=== PATIENT | female | born 1985 | race Caucasian/White ===

== ENCOUNTER 2022-11-23 08:36 | Emergency (ER) | payer OTHER, SELFPAY ==
--- NOTE | 2022-11-23 08:46 | ED.URI ---
HPI - URI/Sore Throat General Chief Complaint: Upper Respiratory Infection Stated Complaint: ear ringing and pain; headache, nose Time Seen by Provider: 11/23/22 08:47 Source: patient, RN notes reviewed and old records reviewed Mode of arrival: ambulatory Limitations: no limitations History of Present Illness HPI Narrative: 37-year-old female presents to the [facility] with ear ringing, pain and headache. patient had sinus surgery July. July and August were on antibiotics for same complaints. Currently under treatment with neurologist for chronic migraines. Currently using Botox. States this is going on a month but over last couple of days as got worse. Related Data Home Medications Medication Instructions Recorded Confirmed desvenlafaxine succinate 25 mg 25 mg PO DAILY 11/23/22 11/23/22 tablet,extended release 24 hr ubrogepant 100 mg tablet (Ubrelvy) 100 mg PO PRN PRN Migraine Headache 11/23/22 11/23/22 Allergies Allergy/AdvReac Type Severity Reaction Status Date / Time No Known Allergies Allergy Verified 11/23/22 08:51 Review of Systems Review of Systems: All systems reviewed & are unremarkable except as noted in HPI and below Constitutional: Constitutional: Reports no additional constitutional complaints Eyes: Eyes: Reports no additional eye complaints ENT: Reports as per HPI and Reports otalgia Cardiovascular: Cardiovascular: Reports no additional cardiovascular complaints, Denies chest pain and Denies dyspnea Respiratory: Respiratory: Reports no additional respiratory complaints, Denies chest congestion, Denies cough and Denies dyspnea Gastrointestinal: Gastrointestinal: Reports no additional gastrointestinal complaints, Denies abdominal pain, Denies nausea and Denies vomiting Musculoskeletal: Musculoskeletal: Reports no additional musculoskeletal complaints Integumentary/Breasts: Skin/Breast: Reports system reviewed and no additional complaints, except as docu Neurologic: Reports system reviewed and no additional complaints, except as documented Psychiatric: Psychiatric: Reports no additional psychiatric complaints Allergic/Immunologic: Allergic/Immunologic: Reports no additional allergic/immunologic complaints PMFSH Past Medical History Medical History (Updated 11/23/22 @ 11:39 by Jodi Chun APRN) Migraines Surgical History Surgical History (Updated 11/23/22 @ 11:37 by Jodi Chun APRN) H/O sinus surgery Social History Social History (Updated 11/23/22 @ 11:37 by Jodi A. Topper, SILVERER) Gender identity (if verbalized by the patient): Female Comments At the time of my signature, I reviewed and agree with the nursing past medical, surgical, social, and family history. There is no relevant family history pertinent to the patient complaint. Exam Const: General: cooperative, healthy appearing, comfortable, no acute distress, well developed, alert and well nourished Nutritional Appearance: well nourished and obese Orientation/consciousness: patient oriented x3 Limitations: no limitations HENMT: Head: normal to inspection Ears: hearing grossly normal bilaterally, external ears normal, EAC's normal, mastoids normal, no periauricular adenopathy and TM abnormal bulging bilateral, erythematous on the right, with fluid behind the TM on the left and with loss of landmarks on the right Face/Nose/Sinus: Normal external nose present, Normal nares present, Normal nasal mucous membranes and turbinates present and normal facial exam Face and sinus: normal facial exam, sinuses nontender and face symmetric Mouth: Yes Normal oral and palatal mucosa present, Yes lip normal, Yes tongue normal and Yes moist mucous membranes Throat: posterior oropharynx normal, tonsils normal and uvula midline Eyes: General: appearance normal, both eyes and all related structures Alignment and Position: alignment normal Periorbital: periorbital findings normal Conjunctivae: conjunctivae normal
[2022-11-23 08:48] VITALS: BP 126/87; PULSE 87; RESP 20; TEMP 36.1; O2SAT 100
== END 2022-11-23 09:11 | disposition home or self-care (01) ==
PROVIDERS: Emergency Provider Nurse Practitioner; PCP Nurse Practitioner Family
DX: H66.91 Otitis media, unspecified, right ear (principal); H65.02 Acute serous otitis media, left ear
CPT/HCPCS: 99203; G0463

== ENCOUNTER 2022-12-29 18:28 | Emergency (ER) | payer OTHER, SELFPAY ==
--- NOTE | 2022-12-29 18:32 | ED.GENADULT ---
HPI - General Adult General Chief complaint: Upper Respiratory Infection Stated complaint: Rt Ear Irritation,Congestion Time Seen by Provider: 12/29/22 18:32 Source: patient Mode of arrival: ambulatory Limitations: no limitations History of Present Illness HPI narrative: 37-year-old female patient presents to the [facility] with complaints of cold symptoms for the past 3 weeks. Patient states she did recently just see her ENT because she has had nasal surgery in July. The ENT did scope her sinuses and said she might have a sinus infection but also could be related to allergies and prescribed her a steroid nasal spray. Patient states she started with a cough today and feels like her chest is heavy at times and hurts worse when taking a deep breath in. Denies fevers, body aches or chills. Related Data Home Medications Medication Instructions Recorded Confirmed desvenlafaxine succinate 25 mg 25 mg PO DAILY 11/23/22 12/29/22 tablet,extended release 24 hr ubrogepant 100 mg tablet (Ubrelvy) 100 mg PO PRN PRN Migraine Headache 11/23/22 12/29/22 Allergies Allergy/AdvReac Type Severity Reaction Status Date / Time No Known Allergies Allergy Verified 12/29/22 18:47 Review of Systems Review of Systems: CONSTITUTIONAL: Denies fever, chills, or sweats. EYES: Denies visual changes, redness, or discharge. ENT: Denies rhinorrhea, congestion, sore throat, or otalgia. CARDIOVASCULAR: Denies chest pain, palpitations, or edema. RESPIRATORY: Denies cough or dyspnea. GASTROINTESTINAL: Denies abdominal pain, nausea, vomiting, or diarrhea. GENITOURINARY: Denies dysuria or hematuria. SKIN: Denies rash or itching. MUSCULOSKELETAL: Denies back pain, joint pain, or myalgia. NEUROLOGIC: Denies headache, numbness, or weakness. PSYCHIATRIC: Denies anxiety or depression. [facility] Past Medical History Medical History Migraines Surgical History Surgical History H/O sinus surgery Social History Social History Gender identity (if verbalized by the patient): Female Comments At the time of my signature I agree with nursing past medical history, surgical, social, and family history. There is no relevant family history pertinent to the presenting complaint. Exam Narrative: GENERAL: Well-appearing, well-nourished, and in no acute distress. HEAD: Normocephalic, atraumatic. EYES: PERRLA and EOMI. ENT: Nares clear, no rhinorrhea or epistaxis. Mucous membranes moist. Posterior pharynx with no erythema, tonsillar edema, exudates or lesions present. Bilateral TMs are clear no erythema or foreign bodies the canal. NECK: Supple. No lymphadenopathy CHEST: Clear to auscultation. No respiratory distress. HEART: Regular rate and rhythm. No murmur heard. Normal peripheral pulses. ABDOMEN: Soft, nontender, nondistended, normal active bowel sounds. EXTREMITIES: Normal range of motion. No edema. SKIN: Warm, dry, no rash. NEURO: No focal deficits. Alert and oriented x3. Course Course Level of Care: Express Care Visit Vital Signs Vital signs: Vital Signs Temperature 36.4 C 12/29/22 19:12 Pulse Rate 87 12/29/22 19:12 Respiratory Rate 18 12/29/22 19:12 Blood Pressure 102/62 12/29/22 19:12 Pulse Oximetry 100 12/29/22 19:12 Oxygen Delivery Room Air 12/29/22 19:12 Temperature 36.4 C 12/29/22 19:12 Pulse Rate 87 12/29/22 19:12 Respiratory Rate 18 12/29/22 19:12 Blood Pressure 102/62 12/29/22 19:12 Pulse Oximetry 100 12/29/22 19:12 Oxygen Delivery Room Air 12/29/22 19:12 Vital signs reviewed Medical Decision Making MDM Narrative Medical decision making narrative: Discussed with patient that since she has had symptoms for a while and is now it has become a cough most likely is developing a bronchitis. Discussed with patient we will di
[2022-12-29 19:12] VITALS: BP 102/62; PULSE 87; RESP 18; TEMP 36.4; O2SAT 100
== END 2022-12-29 19:50 | disposition home or self-care (01) ==
PROVIDERS: Emergency Provider Nurse Practitioner Family; PCP Nurse Practitioner Family
DX: J06.9 Acute upper respiratory infection, unspecified (principal); R05.9 Cough, unspecified; J40 Bronchitis, not specified as acute or chronic; Z20.822 Contact with and (suspected) exposure to COVID-19; F41.9 Anxiety disorder, unspecified; F32.A Depression, unspecified
CPT/HCPCS: 87081; 87426; 87804; 87880; 99213; C9803; G0463

== ENCOUNTER 2023-06-27 10:42 | Emergency (ER) | payer OTHER, SELFPAY ==
--- NOTE | 2023-06-27 10:54 | ED.URI ---
HPI - URI/Sore Throat General Chief Complaint: Upper Respiratory Infection Stated Complaint: headache,cough,congestion Time Seen by Provider: 06/27/23 11:01 Source: patient and RN notes reviewed Mode of arrival: ambulatory Limitations: no limitations History of Present Illness HPI Narrative: 38-year-old female presented for complaint of sinus pressure and congestion with a cough for over 2 weeks. States pressures is worse under both eyes. She endorses a history of sinus infections, states she has had more frequent sinus infections since July of last year when she had a septoplasty. Unable to tolerate antihistamines, stating they make her drowsy and angry. States she was given a steroid nasal rinse but it causes ear pain and she has not continued with it. Currently taking cough med and using Flonase. Denies sob, wheezing, body aches, n/v/d/f/c. MD elicited complaint: cough Related Data Home Medications Medication Instructions Recorded Confirmed ubrogepant 100 mg tablet (Ubrelvy) 100 mg PO PRN PRN Migraine Headache 11/23/22 06/27/23 vortioxetine 5 mg tablet 5 mg DIRECTED 06/27/23 06/27/23 (Trintellix) Allergies Allergy/AdvReac Type Severity Reaction Status Date / Time No Known Allergies Allergy Verified 12/29/22 18:47 Review of Systems Review of Systems: CONSTITUTIONAL: Denies malaise, chills, sweats, fever EYES: Denies visual changes, redness, or discharge ENT: Reports rhinorrhea, congestion, sinus pain, denies otalgia, sore throat CARDIOVASCULAR: Denies chest pain, palpitations, edema RESPIRATORY: Reports cough, post nasal drainage. Denies dyspnea GASTROINTESTINAL: Denies abdominal pain, nausea, vomiting, diarrhea SKIN: Denies rash or itching MUSCULOSKELETAL: Denies myalgia NEUROLOGIC: Reports headache PMFSH Past Medical History Medical History (Updated 06/27/23 @ 11:13 by Shy Engel APRN) Migraines Surgical History Surgical History (Updated 06/27/23 @ 11:13 by Shy Engel APRN) H/O sinus surgery History of cholecystectomy Social History Social History Gender identity (if verbalized by the patient): Female Exam Narrative: GENERAL: well-appearing, nontoxic HEAD: Normocephalic EYES: PERRLA, conjunctivae clear ENT: Mucous membranes moist. Reports maxillary tenderness. TMs pearly chaney with light reflex bilaterally; no tragal tenderness. Oropharynx normal, no drooling, no hoarseness, no trismus, uvula midline. NECK: Supple. No lymphadenopathy CHEST: Clear to auscultation, breath sounds equal. No wheezing, rhonchi, rales, or stridor. No respiratory distress, speaks in full sentences. HEART: Regular rate and rhythm. No murmur heard. SKIN: Warm, dry, no rash. NEURO: Alert and oriented x3. PSYCH: Normal mood and affect Course Course Emergency Course: Patient is aware of diagnosis, understands and agrees to treatment plan. Anticipatory guidance given. Patient agrees to follow-up as directed and is aware of reasons to seek care at the emergency department. Portions of this record may have been created with voice recognition software Level of Care: Express Care Visit Vital Signs Vital signs: reviewed MDM - URI/Sore Throat MDM Narrative Medical decision making narrative: Discussed physical exam findings. Pt plans to f/u with new ENT for sleep studies and will address recurrent sinus infections. Advised supportive measures and signs/symptoms to go to the ER. Pt is appropriate for outpt treatment and f/u. Differential Diagnosis Differential diagnosis: Likely upper respiratory infection, otitis media, sinusitis and viral infection Discharge Plan Discharge Clinical Impression: Upper respiratory infection Patient Disposition: Home, Self-Care Condition: Stable Instructions: Antibiotic Form, Rhinosinusitis (ED) Additional Instructions: Recommend Flonase spray and saline spray over the counter Cough
[2023-06-27 10:56] VITALS: BP 144/92; PULSE 64; RESP 18; TEMP 36.1; O2SAT 100
== END 2023-06-27 11:13 | disposition home or self-care (01) ==
PROVIDERS: Emergency Provider Nurse Practitioner Family
DX: J06.9 Acute upper respiratory infection, unspecified (principal)
CPT/HCPCS: 99203; G0463

== ENCOUNTER 2023-07-28 09:18 | Emergency (ER) | payer OTHER, SELFPAY ==
--- NOTE | ~2023-07-28 | XR_ITS ---
EXAMINATION: XR toe 1st LT min 2V DATE: 07/28/2023 09:54 INDICATION: Left great toe injury and pain. TECHNIQUE: 4 views of left great toe were obtained. COMPARISON: None. FINDINGS: Bone alignment is normal. No fracture. There is mild osteoarthritis of first metatarsophala ngeal joint. IMPRESSION: 1. Mild osteoarthritis of first metatarsophalangeal joint. Reviewed, dictated and finalized at location A. ING MACHINE OFFBEARER
--- NOTE | ~2023-07-28 | XR_ITS ---
EXAMINATION: XR ankle RT min 3V DATE: 07/28/2023 09:53 INDICATION: Right ankle injury and pain. TECHNIQUE: 4 views of right ankle were obtained. COMPARISON: None. FINDINGS: Bone alignment is normal. No fracture. There is an osteochondral lesion of lateral talar do me. There is heterotopic ossification distal to medial malleolus, likely from old injury. There is an enthesophyte at the plantar aspect of calcaneal tuberosity. Ankle soft tissue swelling is noted. IMPRESSION: 1. Osteochondral lesion of lateral talar dome. Reviewed, dictated and finalized at location A. RTMENT MANAGER
[2023-07-28 09:32] VITALS: BP 127/72; PULSE 68; RESP 16; TEMP 35.8; O2SAT 100
--- NOTE | 2023-07-28 09:33 | ED.GENADULT ---
HPI - General Adult General Chief complaint: Extremity Injury, Lower Stated complaint: lower extremity injury Time Seen by Provider: 07/28/23 09:33 Source: patient Mode of arrival: ambulatory Limitations: no limitations History of Present Illness HPI narrative: 38-year-old female patient returned from [place] yesterday. Patient states she was playing football with kids went to jump over a curb and landed in a hole twisted her right ankle and hit her left great toe. patient states she was hopping around the airport yesterday on the way home and cannot tell whether her left knee is just sore from that or she hit her left knee but denies major pain and discomfort. patient states she has taken Advil for pain and swelling relief along with ice and elevation. Related Data Home Medications Medication Instructions Recorded Confirmed ubrogepant 100 mg tablet (Ubrelvy) 100 mg PO PRN PRN Migraine Headache 11/23/22 07/28/23 vortioxetine 5 mg tablet 5 mg PO DIRECTED 06/27/23 07/28/23 (Trintellix) Allergies Allergy/AdvReac Type Severity Reaction Status Date / Time No Known Allergies Allergy Verified 07/28/23 09:20 Review of Systems Review of Systems: CONSTITUTIONAL: Denies fever, chills, or sweats. EYES: Denies visual changes, redness, or discharge. ENT: Denies rhinorrhea, congestion, sore throat, or otalgia. CARDIOVASCULAR: Denies chest pain, palpitations, or edema. RESPIRATORY: Denies cough or dyspnea. GASTROINTESTINAL: Denies abdominal pain, nausea, vomiting, or diarrhea. GENITOURINARY: Denies dysuria or hematuria. SKIN: Denies rash or itching. MUSCULOSKELETAL: Denies back pain, positive right ankle and left great toe joint pain and swelling. left knee soreness. NEUROLOGIC: Denies headache, numbness, or weakness. PSYCHIATRIC: Denies anxiety or depression. [facility] Past Medical History Medical History Migraines Surgical History Surgical History H/O sinus surgery History of cholecystectomy Social History Social History Gender identity (if verbalized by the patient): Female Comments at the time of my signature I agree with nursing past medical history, surgical, social, and family history. There is no relevant family history pertinent to the presenting complaint. Exam Narrative: GENERAL: Well-appearing, well-nourished, and in no acute distress. HEAD: Normocephalic, atraumatic. EYES: PERRLA and EOMI. ENT: Nares clear, no rhinorrhea or epistaxis. Mucous membranes moist. NECK: Supple. No lymphadenopathy CHEST: Clear to auscultation. No respiratory distress. HEART: Regular rate and rhythm. No murmur heard. Normal peripheral pulses. ABDOMEN: Soft, nontender, nondistended, normal active bowel sounds. EXTREMITIES: Patient is unable to bear weight and ambulate without pain. The R ankle is with obvious asymmetry and edema around the lateral and medial malleoli when compared to the L ankle. Patient can flex/extend with pain, invert/therese without pain. No obvious surface trauma, positive ecchymosis and soft tissue swelling of the right ankle. positive tenderness to palpation over the medial or lateral malleolus. Anterior talofibular ligament, posterior talofibular ligament, calcaneofibular ligament tender and with swelling. No tenderness or deformity of the over the proximal fifth metatarsal. Good DP and posterior tibial pulses and sensation to light touch normal. Talar tilt test is negative for ligament laxity of the ankle. Peroneal nerve is intact with strong eversion and plantar flexion. Left great toe is swollen with ecchymosis, no tenderness to the joint areas, and full sensation present with light touch. SKIN: Warm, dry, no rash. NEURO: No focal deficits. Alert and oriented x3. Course Course Level of Care: Express Care Visit Verito
== END 2023-07-28 10:12 | disposition home or self-care (01) ==
PROVIDERS: Emergency Provider Nurse Practitioner Family
DX: S93.402A Sprain of unspecified ligament of left ankle, initial encounter (principal); S96.912A Strain of unspecified muscle and tendon at ankle and foot level, left foot, initial encounter; S90.112A Contusion of left great toe without damage to nail, initial encounter; Z79.899 Other long term (current) drug therapy; X50.0XXA Overexertion from strenuous movement or load, initial encounter
CPT/HCPCS: 73610; 73660; 99213; G0463

== ENCOUNTER 2023-08-30 08:56 | Emergency (ER) | payer OTHER, SELFPAY ==
--- NOTE | 2023-08-30 09:03 | ED.URI ---
HPI - URI/Sore Throat General Chief Complaint: Upper Respiratory Infection Stated Complaint: cough,bilateral ear pain Time Seen by Provider: 08/30/23 09:03 Source: patient Mode of arrival: ambulatory Limitations: no limitations History of Present Illness HPI Narrative: Keli is a 30-year-old female patient presenting to the clinic today with complaints of cough, sinus pressure, sore throat, nasal drainage, and bilateral ear pain x5 days. She reports no known fever, body aches, or chills. Reports having green nasal drainage. Related Data Home Medications Medication Instructions Recorded Confirmed ubrogepant 100 mg tablet (Ubrelvy) 100 mg PO PRN PRN Migraine Headache 11/23/22 08/30/23 vortioxetine 5 mg tablet 5 mg PO DIRECTED 06/27/23 08/30/23 (Trintellix) Allergies Allergy/AdvReac Type Severity Reaction Status Date / Time No Known Allergies Allergy Verified 08/30/23 09:32 Review of Systems Review of Systems: Pertinent positives per HPI. Patient denies any fever, chills, rash, headache, visual changes, dizziness, sore throat, shortness of breath, chest pain, palpitations, nausea, vomiting, diarrhea, constipation, abdominal pain, or any urinary issues. PMFSH Past Medical History Medical History Migraines Surgical History Surgical History H/O sinus surgery History of cholecystectomy Social History Social History Gender identity (if verbalized by the patient): Female Comments At the time of my signature, I reviewed and agree with the nursing past medical, surgical, social, and family history. There is no relevant family history pertinent to the patient complaint. Exam Narrative: General: Well-developed, well nourished, in no apparent distress Head: Normocephalic, atraumatic Eyes: Pupils equally round and reactive to light bilaterally, EOM intact, sclera and conjunctive clear, no discharge, lids normal Ears: TMs intact and congested, ear canals clear, no drainage, grossly hearing normal. Nose: Nares patent, clear nasal discharge, moderate inflammation, maxillary and frontal sinus tenderness. Mouth: Oropharynx without lesions or masses, good dentition, MMM. Postnasal drip Neck: Supple, trachea midline, no enlargement of anterior or posterior cervical nodes, no thyroid masses or goiter palpable. Cardio: Regular rate and rhythm, s1 and s2 normal, no murmur appreciated. Resp: Clear to auscultation bilaterally anteriorly and posteriorly, no rhonchi, rales, wheezing or rubs Course Course Emergency Course: Portions of this record may have been created with voice recognition software. Level of Care: Express Care Visit Vital Signs Vital signs: Vital signs reviewed MDM - URI/Sore Throat MDM Narrative Medical decision making narrative: At the time of visit patient is resting comfortably on the exam table. Patient appears to be nontoxic. Strep test was negative in the clinic today. We will send strep for culture. Offered steroids and patient declined. I suspect she has viral sinusitis. Supportive measures were discussed with the patient and they voiced understanding discharge instructions and agrees to treatment plan. Return precautions reviewed Differential Diagnosis Differential diagnosis: Likely upper respiratory infection, otitis media, sinusitis, viral infection, bronchitis, influenza, pharyngitis and other (COVID) Discharge Plan Discharge Clinical Impression: Acute viral sinusitis Patient Disposition: Home, Self-Care Condition: Stable Instructions: Antibiotic Form, Sinusitis (ED) Additional Instructions: Strep testing was negative in the clinic today. We will send strep for culture if this comes back positive we will contact you and place you on antibiotics at that time. May use [facility] a
[2023-08-30 09:20] VITALS: BP 121/76; PULSE 84; RESP 16; TEMP 36; O2SAT 99
== END 2023-08-30 10:04 | disposition home or self-care (01) ==
PROVIDERS: Emergency Provider Nurse Practitioner Family
DX: J01.90 Acute sinusitis, unspecified (principal)
CPT/HCPCS: 87081; 87880; 99213; G0463

== ENCOUNTER 2023-11-13 10:03 | Emergency (ER) | payer OTHER, SELFPAY ==
[2023-11-13 10:24] VITALS: BP 120/69; PULSE 66; RESP 16; TEMP 36.2; O2SAT 99
--- NOTE | 2023-11-13 10:29 | ED.URI ---
HPI - URI/Sore Throat General Chief Complaint: Upper Respiratory Infection Stated Complaint: rt earache,sinus pain Time Seen by Provider: 11/13/23 11:03 Source: patient and RN notes reviewed Mode of arrival: ambulatory Limitations: no limitations History of Present Illness HPI Narrative: 30-year-old female presents concern for 10 day history of bilateral ear pain, worse on the right, sinus pain and pressure. She reports she had a fever for 3 days towards the beginning of her symptoms. She recently has been sweating. She has been taking [id number] medications without relief. She had sinus surgery 2 years ago and has had frequent sinus infections. MD elicited complaint: cough, nasal congestion and sinus pain Related Data Home Medications Medication Instructions Recorded Confirmed ubrogepant 100 mg tablet (Ubrelvy) 100 mg PO PRN PRN Migraine Headache 11/23/22 08/30/23 vortioxetine 5 mg tablet 5 mg PO DIRECTED 06/27/23 08/30/23 (Trintellix) ascorbic acid (vitamin C) 500 mg 11/13/23 tablet (Vitamin C With Tiffany Hips) cholecalciferol (vitamin D3) 1,250 11/13/23 mcg (50,000 unit) capsule ferrous sulfate 325 mg (65 mg mg 11/13/23 iron) tablet (FeroSul) Allergies Allergy/AdvReac Type Severity Reaction Status Date / Time No Known Allergies Allergy Verified 11/13/23 10:25 Review of Systems Review of Systems: CONSTITUTIONAL: Reports malaise, sweats, or fever. EYES: Denies visual changes, redness, or discharge. ENT: Reports rhinorrhea, congestion, sinus pain, otalgia CARDIOVASCULAR: Denies chest pain, palpitations, or edema. RESPIRATORY: Reports cough. Denies dyspnea. GASTROINTESTINAL: Denies abdominal pain, nausea, vomiting, diarrhea SKIN: Denies rash or itching. MUSCULOSKELETAL: Denies myalgia. NEUROLOGIC: Denies headache. All systems reviewed & are unremarkable except as noted in HPI and below PMFSH Past Medical History Medical History Migraines Surgical History Surgical History H/O sinus surgery History of cholecystectomy Social History Social History : Female Comments At time of signature, agree with nursing past medical, surgical, social and family history. There is no relevant family history pertinent to the presenting complaint Exam Narrative: GENERAL: Well-appearing, well-nourished, and in no acute distress. HEAD: Normocephalic EYES: PERRLA, conjunctivae clear ENT: Nares clear, turbinates edematous and erythematous. Mucous membranes moist. TM pearly chaney with dull light reflex bilaterally; no tragal tenderness. Oropharynx not erythematous without lesions. Tonsils not enlarged and without exudate, no drooling, no hoarseness, no trismus, uvula midline. NECK: Supple. No lymphadenopathy CHEST: Clear to auscultation, breath sounds equal. No wheezing, rhonchi, rales, or stridor. No respiratory distress, speaks in full sentences. Cough noted HEART: Regular rate and rhythm. No murmur heard. SKIN: Warm, dry, no rash. NEURO: Alert and oriented x3. PSYCH: Normal mood and affect Course Course Emergency Course: Patient is aware of diagnosis, understands and agrees to treatment plan. Anticipatory guidance given. Patient agrees to follow-up as directed and is aware of reasons to seek care at the emergency department. Portions of this record may have been created with voice recognition software Level of Care: Express Care Visit Vital Signs Vital signs: Vital Signs Temperature 97.2 F L 11/13/23 10:24 Pulse Rate 66 11/13/23 10:24 Respiratory Rate 16 11/13/23 10:24 Blood Pressure 120/69 11/13/23 10:24 Pulse Oximetry 99 11/13/23 10:24 Oxygen Delivery Room Air 11/13/23 10:24 Temperature 97.2 F L 11/13/23 10:24 Pulse Rate 66 03/0
== END 2023-11-13 11:17 | disposition home or self-care (01) ==
PROVIDERS: Emergency Provider Nurse Practitioner
DX: J32.9 Chronic sinusitis, unspecified (principal); J40 Bronchitis, not specified as acute or chronic
CPT/HCPCS: 99213; G0463

== ENCOUNTER 2023-11-15 12:42 | Emergency (ER) | payer OTHER, SELFPAY ==
[2023-11-15 12:52] VITALS: BP 115/69; PULSE 82; RESP 16; TEMP 36.1; O2SAT 99
--- NOTE | 2023-11-15 14:21 | ED.GENADULT ---
HPI - General Adult General Chief complaint: Abdominal Pain Stated complaint: Stomach Pains Time Seen by Provider: 11/15/23 13:17 Source: patient and RN notes reviewed Mode of arrival: ambulatory Limitations: no limitations History of Present Illness HPI narrative: Patient presents today complaining of diarrhea since last night with abdominal cramping. States she has had 10+ stools today. She has tried Pepto-Bismol and Imodium. States she believes the diarrhea has finally stopped this afternoon. Two days ago she was started on Augmentin and a Medrol Dosepak for sinusitis. Related Data Home Medications Medication Instructions Recorded Confirmed ubrogepant 100 mg tablet (Ubrelvy) 100 mg PO PRN PRN Migraine Headache 11/23/22 11/15/23 vortioxetine 5 mg tablet 5 mg PO DIRECTED 06/27/23 11/15/23 (Trintellix) ascorbic acid (vitamin C) 500 mg 500 mg PO DAILY 11/13/23 11/15/23 tablet (Vitamin C With Tiffany Hips) cholecalciferol (vitamin D3) 1,250 1,250 mcg PO WEEKLY 11/13/23 11/15/23 mcg (50,000 unit) capsule ferrous sulfate 325 mg (65 mg 325 mg PO DAILY 11/13/23 11/15/23 iron) tablet (FeroSul) Allergies Allergy/AdvReac Type Severity Reaction Status Date / Time No Known Allergies Allergy Verified 11/15/23 12:46 Review of Systems Review of Systems: CONSTITUTIONAL: Denies body aches, fever, chills, or sweats. EYES: Denies visual changes, redness, or discharge. ENT: Denies rhinorrhea, congestion, sore throat, or otalgia. CARDIOVASCULAR: Denies chest pain, palpitations, or edema. RESPIRATORY: Denies cough or dyspnea. GASTROINTESTINAL: Denies nausea, vomiting.+ abdominal cramping, diarrhea GENITOURINARY: Denies dysuria or hematuria. SKIN: Denies rash, itching, or wounds. MUSCULOSKELETAL: Denies back pain, joint pain, or myalgia. NEUROLOGIC: Denies headache, numbness, tingling, or weakness. PSYCH: Denies depression or anxiety. PMFSH Past Medical History Medical History Migraines Surgical History Surgical History H/O sinus surgery History of cholecystectomy Social History Social History Gender identity (if verbalized by the patient): Female Comments At time of signature, I have reviewed and agree with nursing past medical, surgical, social and family history unless otherwise noted. Please see nursing chart for further information. There is no relevant family history pertinent to the presenting complaint Exam Narrative: GENERAL: Well-appearing, well-nourished, and in no acute distress. HEAD: Normocephalic, atraumatic. EYES: EOMI. No redness or drainage. Conjunctivae normal. ENT: Mucous membranes pink and moist. NECK: Normal AROM. CHEST: No respiratory distress. Clear to auscultation. HEART: Regular rate and rhythm. No murmur appreciated. Normal peripheral pulses. ABDOMEN: Soft, nondistended, normal active bowel sounds.+ generalized mild abdominal tenderness without rebound or guarding EXTREMITIES: Normal range of motion. No edema. SKIN: Warm, dry, no rash. Capillary refill normal. Normal skin turgor. NEURO: No focal deficits. Alert and oriented x3. Gait steady. PSYCH: Normal affect. No signs of depression or anxiety. Course Course Level of Care: Express Care Visit Vital Signs Vital signs: Vital Signs Temperature 97.0 F L 11/15/23 12:52 Pulse Rate 82 11/15/23 12:52 Respiratory Rate 16 11/15/23 12:52 Blood Pressure 115/69 11/15/23 12:52 Pulse Oximetry 99 11/15/23 12:52 Oxygen Delivery Room Air 11/15/23 12:52 Temperature 97.0 F L 11/15/23 12:52 Pulse Rate 82 11/15/23 12:52 Respiratory Rate 16 11/15/23 12:52 Blood Pressure 115/69 11/15/23 12:52 Pulse Oximetry 99 11/15/23 12:52 Oxygen Delivery Room Air 11/15/23 12:52 Reviewed Medical Decision [place]
== END 2023-11-15 13:31 | disposition home or self-care (01) ==
PROVIDERS: Emergency Provider Nurse Practitioner
DX: R19.7 Diarrhea, unspecified (principal); Z79.899 Other long term (current) drug therapy
CPT/HCPCS: 99213; G0463